=== PATIENT | female | born 1975 | race Caucasian/White ===

== ENCOUNTER 2020-12-07 11:02 | Emergency (ER) | payer OTHER ==
[~2020-12-07 11:02] MED LIST: CLEOCIN HCL300 MG PO
[2020-12-07 12:06] LABS: HEMOGLOBIN 16.7 gm/dl (12.3-15.3); RED BLOOD COUNT 4.52 M/UL (4.00-5.10); WHITE BLOOD COUNT 6.5 K/UL (4.5-11.0)
[2020-12-07 12:58] LABS: BUN/CREATININE RATIO 8 (0-10)
[2020-12-07] MEDS ORDERED: PROVENTIL HFA6.7 GM INH (14:10)
[2020-12-07] MEDS ORDERED: MEDROL DOSEPAK 24 MG PO (14:10)
[2020-12-07] MEDS ORDERED: VIBRAMYCIN100 MG PO (14:10)
== END 2020-12-07 14:30 | disposition home or self-care (01) ==
LOC: ER1 11:02
PROVIDERS: Physician Assistant
DX: J18.9 Pneumonia, unspecified organism (principal); E87.6 Hypokalemia; F17.210 Nicotine dependence, cigarettes, uncomplicated; Z20.822 Contact with and (suspected) exposure to COVID-19; Z88.8 Allergy status to other drugs, medicaments and biological substances; Z90.49 Acquired absence of other specified parts of digestive tract
CPT/HCPCS: 0240U; 71045; 80053; 85025; 96374; 99285; J2930

== ENCOUNTER 2021-04-11 17:33 | Emergency (ER) | payer OTHER ==
[~2021-04-11 17:33] MED LIST changes: +MEDROL DOSEPAK 24 MG PO; +PROVENTIL HFA6.7 GM INH; +VIBRAMYCIN100 MG PO
[2021-04-11 19:23] LABS: HEMOGLOBIN 16.7 gm/dl (12.3-15.3); RED BLOOD COUNT 4.48 M/UL (4.00-5.10); WHITE BLOOD COUNT 8.2 K/UL (4.5-11.0)
[2021-04-11 19:41] LABS: BUN/CREATININE RATIO 8 (0-10)
[2021-04-12] MEDS ORDERED: PROTONIX40 MG PO (00:44)
[2021-04-12] MEDS ORDERED: BENTYL 20MG TAB20 MG PO (00:44)
== END 2021-04-12 00:55 | disposition home or self-care (01) ==
LOC: ER1 17:33
DX: R10.11 Right upper quadrant pain (principal); R10.31 Right lower quadrant pain; E87.6 Hypokalemia; Z90.49 Acquired absence of other specified parts of digestive tract; Z88.5 Allergy status to narcotic agent; F17.200 Nicotine dependence, unspecified, uncomplicated
CPT/HCPCS: 80053; 81001; 82150; 83690; 84703; 85025; 96374; 99284; J1885

== ENCOUNTER → 2022-05-01 | Outpatient (CLI) | payer OTHER ==
[~2022-05-01] MED LIST changes: +BENTYL 20MG TAB20 MG PO; +PROTONIX40 MG PO
== END ==
LOC: RAD 15:42
DX: R10.32 Left lower quadrant pain (principal)
CPT/HCPCS: 74018